=== PATIENT | female | born 1960 | race Caucasian/White ===

== ENCOUNTER → 2016-07-12 | Outpatient (CLI) | payer MEDICARE, MEDICAID ==
[2016-01-25 12:49] VITALS: BP 123/75
[~2016-07-12] MED LIST: ALPR1TAB2 PO; HYDR-971 PO; LOSA50TA6 PO; OXYC15TA PO
--- NOTE | 2016-07-12 16:23 | KCIC ---
MR LUMBAR SPINE Indication: Lumbar stenosis. Clinical back pain. Radiculopathy and lower extremities when walking. COMPARISON: None Technique: Sagittal T2, sagittal STIR, and sagittal T1-weighted images were obtained. Additional axial T1 and T2 weighted imaging was also performed. FINDINGS: There is retrolisthesis of L5 on S1 and grade 1 anterolisthesis of L3 on L4. No compression fracture or deformity. Overall bone marrow signal is within normal limits apart from reactive endplate edema at L5-S1. The conus terminates normally at the level of L1. Visualized intra-abdominal contents are within normal limits. At L5-S1 there is severe spinal stenosis from a posterior disc osteophyte complex. There is also advanced disc height loss with reactive endplate edema. Correlate for sacral radiculopathies most likely S1. At L5 4-L5 there is moderate disc height loss and a broad-based disc protrusion resulting in severe central spinal stenosis. There is also mild facet arthropathy worse on the left. Correlate for L5 or lower radiculopathy symptoms. At L3-L4 there is moderate central stenosis from the presence of a broad-based disc bulge. There is bilateral facet arthropathy with grade 1 degenerative anterolisthesis. At L2-L3 there is no spinal stenosis. IMPRESSION: Multilevel degenerative disc disease and facet arthropathy at the lower lumbar spine greatest at L4-L5 and L5-S1 where there is severe central spinal stenosis at both levels. Moderate central stenosis is noted at L3-L4. Details per level as above. Electronically signed by: Jluis Ha MD (07/12/2016 4:19 PM)
== END | disposition home or self-care (01) ==
LOC: KCIC MRI 14:24
PROVIDERS: ATTEND Family Medicine
DX: M48.06 Spinal stenosis, lumbar region (principal)
CPT/HCPCS: 72148

== ENCOUNTER 2018-05-07 20:13 | Emergency (ER) | payer MEDICARE, MEDICAID ==
[~2018-05-07] VITALS: Ht 157.5 cm; Wt 81.6 kg
[~2018-05-07 20:13] MED LIST changes: +HYDR-3164 PO; -HYDR-971 PO; +LOSA-73 PO; -LOSA50TA6 PO
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
[2018-05-07] MEDS ORDERED: silver sulfADIAZINE 1% CREAM 25GM TUBE. TP ONE (21:00)
[2018-05-07 21:19] VITALS: BP 103/73
[2018-05-07] MEDS ORDERED: BACITRACIN TOPICAL OINT 14GM TUBE. TP ONE (21:30)
[2018-05-07] MEDS ORDERED: HYDROcodone/APAP 5/325MG 1 TAB TABLET PO ONE (22:00)
[2018-05-07] MEDS ORDERED: MUPI22OI2 TP (22:03)
[2018-05-07] MEDS ORDERED: HYDR-2761 PO (22:03)
== END 2018-05-07 22:13 | disposition home or self-care (01) ==
LOC: ER 20:13
DX: T24.211A Burn of second degree of right thigh, initial encounter (principal); E78.00 Pure hypercholesterolemia, unspecified; I10 Essential (primary) hypertension; G89.29 Other chronic pain; Z88.0 Allergy status to penicillin; Z88.2 Allergy status to sulfonamides; Z88.5 Allergy status to narcotic agent; W29.0XXA Contact with powered kitchen appliance, initial encounter; Y93.G3 Activity, cooking and baking; Y92.89 Other specified places as the place of occurrence of the external cause; Y99.8 Other external cause status
CPT/HCPCS: 16020; 99284-25

== ENCOUNTER 2018-05-09 14:29 | Emergency (ER) | payer MEDICARE, MEDICAID ==
[~2018-05-09] VITALS: Ht 157.5 cm; Wt 81.6 kg
[~2018-05-09 14:29] MED LIST changes: +HYDR-2761 PO; +MUPI22OI2 TP
[2018-05-09 14:35] VITALS: BP 196/99
[2018-05-09] MEDS ORDERED: MORPHINE SULFATE 10 MG/ML VIAL. SQ ONE (15:15)
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
[2018-05-09] MEDS ORDERED: DICL50TA2 PO (15:22)
[2018-05-09] MEDS ORDERED: SILV20CR14 TP (15:23)
== END 2018-05-09 15:28 | disposition home or self-care (01) ==
LOC: ER 14:29
DX: T24.211D Burn of second degree of right thigh, subsequent encounter (principal); F41.9 Anxiety disorder, unspecified; E78.00 Pure hypercholesterolemia, unspecified; I10 Essential (primary) hypertension; F17.210 Nicotine dependence, cigarettes, uncomplicated; G89.29 Other chronic pain; Z98.890 Other specified postprocedural states; Z96.659 Presence of unspecified artificial knee joint; Z88.2 Allergy status to sulfonamides; Z88.8 Allergy status to other drugs, medicaments and biological substances; X58.XXXD Exposure to other specified factors, subsequent encounter
CPT/HCPCS: 96372; 99284; J2270

== ENCOUNTER → 2018-05-10 | Outpatient (CLI) | payer MEDICARE, MEDICAID ==
[2018-05-09 14:35] VITALS: BP 196/99
[~2018-05-10] MED LIST changes: +DICL50TA2 PO; +ESCITALOPRAM OX10 MG PO; +HYDR-3135 PO; +SILV20CR14 TP
== END | disposition home or self-care (01) ==
LOC: PMGWOUND 09:44
PROVIDERS: ATTEND Preventive Medicine Undersea and Hyperbaric Medicine
DX: T24.311A Burn of third degree of right thigh, initial encounter (principal); T21.35XA Burn of third degree of buttock, initial encounter; L98.411 Non-pressure chronic ulcer of buttock limited to breakdown of skin; T31.0 Burns involving less than 10% of body surface; G89.29 Other chronic pain; I10 Essential (primary) hypertension; E78.00 Pure hypercholesterolemia, unspecified; F41.9 Anxiety disorder, unspecified; F17.200 Nicotine dependence, unspecified, uncomplicated; E66.9 Obesity, unspecified; Z68.32 Body mass index [BMI] 32.0-32.9, adult; Z88.0 Allergy status to penicillin; Z88.5 Allergy status to narcotic agent; Z88.2 Allergy status to sulfonamides; X19.XXXA Contact with other heat and hot substances, initial encounter; Y93.89 Activity, other specified; Y92.89 Other specified places as the place of occurrence of the external cause; Y99.8 Other external cause status
CPT/HCPCS: 97597; 97598

== ENCOUNTER → 2018-05-15 | Outpatient (CLI) | payer MEDICARE, MEDICAID ==
[2018-05-09 14:35] VITALS: BP 196/99
== END | disposition home or self-care (01) ==
LOC: PMGWOUND 11:35
PROVIDERS: ATTEND Emergency Medicine Undersea and Hyperbaric Medicine
DX: T21.35XD Burn of third degree of buttock, subsequent encounter (principal)
CPT/HCPCS: 97597; 97598

== ENCOUNTER → 2018-05-19 | Outpatient (CLI) | payer MEDICARE, MEDICAID ==
[2018-05-09 14:35] VITALS: BP 196/99
== END | disposition home or self-care (01) ==
LOC: PMGWOUND 11:19
PROVIDERS: ATTEND Preventive Medicine Undersea and Hyperbaric Medicine
DX: T21.35XD Burn of third degree of buttock, subsequent encounter (principal)
CPT/HCPCS: 97597; 97598

== ENCOUNTER 2018-06-25 13:22 | Inpatient (IN) | payer MEDICARE, MEDICAID ==
[2018-06-24] MEDS: IV NORMAL SALINE 1000ML BAG 1,000 ML IV SCH (21:00)
[2018-06-25] VITALS (7 sets, daily range): BP systolic 100–144; BP diastolic 58–85
[~2018-06-25] VITALS: Ht 162.6 cm; Wt 88.1 kg
[~2018-06-25 13:22] MED LIST changes: +CLINDAMYCIN 900MG PREMIX 50 ML IV PRN; -ESCITALOPRAM OX10 MG PO; -HYDR-3135 PO
--- NOTE | 2018-06-25 13:43 | RAD ---
EXAM: Left shoulder, 2 views. HISTORY: Fall. COMPARISON: None. FINDINGS: 2 views left shoulder obtained. There is a comminuted displaced left humeral head and neck fracture. No shoulder dislocation is seen. There is cervical spinal fusion instrumentation and degenerative change involving the visualized cervical spine. IMPRESSION: Displaced comminuted left humeral head and neck fracture. Electronically signed by: Tyra Mclaughlin MD (06/25/2018 1:40 PM) [facility]
--- NOTE | 2018-06-25 14:02 | PHYS DOC ---
Past Medical History Past Medical History: Anxiety, High Cholesterol, Hypertension, Other Additional Past Medical Histor: chronic neck pain Past Surgical History: , Knee Replacement Additional Past Surgical Histo: neck/hernia surgery,bilat carpal tunnel/nerve relaease Alcohol Use: None Drug Use: None Adult General Chief Complaint Chief Complaint: shoulder injury HPI HPI Patient is a 58 year old right-handed female brought in by EMS because of a fall and left shoulder injury. Patient states she lost her balance around midnight last night and had a fall and landed on left shoulder without loss of consciousness or head injury. Patient complaining of pain in left shoulder and unable to move her left upper extremity since the injury and rated her pain 10 over 10 that improved with 100 g of Fentanyl IV given by EMS. Patient denies other injuries and new focal neuro deficit. Review of Systems Review of Systems Constitutional: Denies fever or chills [] Eyes: Denies change in visual acuity, redness, or eye pain [] HENT: Denies nasal congestion or sore throat [] Respiratory: Denies cough or shortness of breath [] Cardiovascular: No additional information not addressed in HPI [] GI: Denies abdominal pain, nausea, vomiting, bloody stools or diarrhea [] : Denies dysuria or hematuria [] Musculoskeletal: Denies back pain, reports joint pain [] Integument: Denies rash or skin lesions [] Neurologic: Denies headache, focal weakness or sensory changes [] Endocrine: Denies polyuria or polydipsia [] All other systems were reviewed and found to be within normal limits, except as documented in this note. Current Medications Current Medications Current Medications Medications (Trade) Dose Ordered Sig/Bib Start Time Stop Time Status Last Admin Dose Admin Clindamycin Phosphate 50 ml @ 100 mls/hr 1X PREOP PRN 06/25/18 06:00 06/26/18 05:59 Fentanyl Citrate (Fentanyl 2ml Vial) 50 mcg 1X ONCE 06/25/18 14:45 06/25/18 14:46 DC 06/25/18 14:47 50 MCG Allergies Allergies Physical Exam Physical Exam Constitutional: Well developed, well nourished, mild distress, non-toxic appearance. [] HENT: Normocephalic, atraumatic. Eyes: PERRLA, EOMI, conjunctiva normal, no discharge. [] Neck: Normal range of motion, no tenderness, supple, no stridor. [] Cardiovascular:Heart rate regular rhythm, no murmur [] Lungs & Thorax: Bilateral breath sounds clear to auscultation [] Skin: Warm, dry, no erythema, no rash. [] Back: No tenderness, no CVA tenderness. [] Extremities: Left shoulder with deformity and edema and ecchymosis with limited range of motion, no neurovascular deficit. Neurologic: Alert and oriented X 3, normal motor function, normal sensory function, no focal deficits noted. [] Psychologic: Affect normal, judgement normal, mood normal. [] Current Patient Data Vital Signs Vital Signs Date Time Temp Pulse Resp B/P (MAP) Pulse Ox O2 Delivery O2 Flow Rate FiO2 06/25/18 14:47 14 Room Air 06/25/18 14:30 86 131/86 (101) 99 2.0 06/25/18 13:22 99.0 99.0 EKG EKG [] Radiology/Procedures Radiology/Procedures [facility] [address] [place] [address] IMAGING REPORT Signed PATIENT: ENA AGEE ACCOUNT: [id number] : 1960 LOCATION: ER AGE: 58 SEX: F EXAM STATUS: PRE ER ORD. PHYSICIAN: MARCO A RODRIGUEZ MD REASON: FALL LAST NIGHT, LEFT SHOULDER PAIN WITH BRUISING PROCEDURE: SHOULDER 2+V LEFT EXAM: Left shoulder, 2 views. HISTORY: Fall. COMPARISON: None. FINDINGS: 2 views left shoulder obtained. There is a comminuted displaced left humeral head and neck fracture. No shoulder dislocation is seen. There is cervical spinal fusion instrumentation and degenerative change involving the visualized cervical spine. IMPRESSION: Displaced comminuted left humeral head and neck fracture. Electronically signed by: Tyra Leos MD (06/25/2018 1:40 PM) [facility] DICTATED and SIGNED BY: TYRA LEOS MD DATE: 06/25/18 5301 Course & Med Decision Making Course & Med Decision Making Pertinent Labs and Imaging studies reviewed. (See chart for details) Evaluation of patient in ER showed 58 female patient with a fall and injury to left shoulder with displaced fracture of humerus head and neck. She was evaluated by Dr. Hopkins in ER with recommendation for admission and possible surgery today.Patient requiring admission for further evaluation and treatment. Discussed with Dr. More who is in agreement with admission. Discussed findings and plan with patient and family, who acknowledge understanding and agreement. Dragon Disclaimer Dragon Disclaimer This electronic medical record was generated, in whole or in part, using a voice recognition dictation system. Departure Departure Impression: Primary Impression: Closed left humeral fracture Disposition: 09 ADMITTED INPATIENT Admitting Physician: Walt More (accepted admission at 1507) Condition: IMPROVED Referrals: MARTELL PIERRE MD (PCP) Problem Qualifiers Primary Impression: Closed left humeral fracture Encounter type: initial encounter Humerus Location: proximal Fracture morphology: other fracture Fracture alignment: displaced Qualified Codes: S42.292A - Other displaced fracture of upper end of left humerus, initial encounter for closed fracture MARCO A RODRIGUEZ MD June 25, 2018 14:02
[2018-06-25] MEDS ORDERED: fentaNYL PF VIAL 100 MCG/2 ML VIAL IV ONE (14:45)
[2018-06-25 15:15] LABS: BASO # 0.1 x10^3/uL (0.0-0.2); BASO % 1 % (0-3); EOS # 0.5 x10^3/uL (0.0-0.7); EOS % 5 % (0-3); HEMATOCRIT 40.7 % (36.0-47.0); HEMOGLOBIN 13.2 g/dL (12.0-15.5); LYMPH # 2.3 x10^3/uL (1.0-4.8); LYMPH % 25 % (24-48); MEAN CORPUSCULAR HEMOGLOBIN 29 pg (25-35); MEAN CORPUSCULAR HGB CONC 33 g/dL (31-37); MEAN CORPUSCULAR VOLUME 88 fL (79-100); MONO # 0.7 x10^3/uL (0.0-1.1); MONO % 8 % (0-9); NEUT # 5.7 x10^3uL (1.8-7.7); NEUT % 62 % (31-73); PLATELET COUNT 403 x10^3/uL (140-400); RED BLOOD COUNT 4.61 x10^6/uL (3.50-5.40); RED CELL DISTRIBUTION WIDTH 14.2 % (11.5-14.5); WHITE BLOOD COUNT 9.3 x10^3/uL (4.0-11.0)
[2018-06-25 15:22] LABS: CALCIUM 9.5 mg/dL (8.5-10.1); GFR 56.7; POTASSIUM 4.6 mmol/L (3.5-5.1)
[2018-06-25 15:27] LABS: ALBUMIN 3.8 g/dL (3.4-5.0); TOTAL BILIRUBIN 0.3 mg/dL (0.2-1.0); TOTAL PROTEIN 7.8 g/dL (6.4-8.2)
[2018-06-25] MEDS: IV NORMAL SALINE 1000ML BAG 1,000 ML IV SCH (15:39)
[2018-06-25] MEDS ORDERED: IV RINGERS,LACTATED 1000ML 1,000 ML IV SCH (16:02)
[2018-06-25] MEDS ORDERED: fentaNYL PF VIAL 100 MCG/2 ML VIAL IV PRN ×4 (16:15→17:00)
[2018-06-25] MEDS ORDERED: MIDAZOLAM HCL/PF 2 MG/2 ML VIAL. IV PRN (16:15)
[2018-06-25] MEDS ORDERED: LIDOCAINE 1% PF 2 ML VIAL. ID PRN ×2 (16:15)
[2018-06-25] MEDS ORDERED: PROCHLORPERAZINE 10 MG/2 ML VIAL. IV PRN (16:15)
[2018-06-25] MEDS ORDERED: ONDANSETRON PF 4 MG/2 ML VIAL. IV PRN ×2 (16:15→17:00)
[2018-06-25] MEDS ORDERED: HYDROmorphone 2 MG/ML VIAL IV PRN (16:15)
[2018-06-25] MEDS ORDERED: MORPHINE SULFATE 2 MG/ML VIAL. IV PRN ×2 (16:15→17:00)
[2018-06-25] MEDS: IV RINGERS,LACTATED 1000ML 1,000 ML IV SCH (16:15)
[2018-06-25] MEDS ORDERED: NEOSTIGMINE METHYLSULFATE 5 MG/5 ML SYRINGE. ONE (16:45)
[2018-06-25] MEDS ORDERED: fentaNYL PF VIAL 100 MCG/2 ML VIAL ONE ×2 (16:45→19:57)
[2018-06-25] MEDS ORDERED: SEVOFLURANE 61 TO 120 MINUTES. IH ONE (16:45)
[2018-06-25] MEDS ORDERED: GLYCOPYRROLATE 1 MG/5 ML VIAL. ONE (16:45)
[2018-06-25] MEDS ORDERED: ROCURONIUM 50 MG/5 ML VIAL. ONE (16:45)
[2018-06-25] MEDS ORDERED: MIDAZOLAM HCL/PF 2 MG/2 ML VIAL. ONE (16:45)
[2018-06-25] MEDS ORDERED: LIDOCAINE 2% PF 5 ML VIAL. ONE (16:46)
[2018-06-25] MEDS ORDERED: DEXAMETHASONE SOD PHOS 4 MG/ML VIAL ONE (16:46)
[2018-06-25] MEDS ORDERED: PROPOFOL 20 ML IV ONE (16:46)
[2018-06-25] MEDS ORDERED: ONDANSETRON PF 4 MG/2 ML VIAL. ONE (16:46)
[2018-06-25] MEDS ORDERED: KETOROLAC 30 MG/ML INJ FOR OR. INJ ONE (16:46)
[2018-06-25] MEDS ORDERED: CLINDAMYCIN 900MG PREMIX 50 ML IV SCH (17:00)
[2018-06-25] MEDS ORDERED: oxyCODONE IR 5 MG TABLET PO PRN (17:00)
[2018-06-25] MEDS ORDERED: HYDROcodone/APAP 7.5/325MG 1 TAB TABLET PO PRN (17:00)
[2018-06-25] MEDS ORDERED: DEXTROSE 50% 25 GM / 50ML DISP.SYRIN. IV PRN (17:00)
[2018-06-25] MEDS ORDERED: POLYETHYLENE GLYCOL 3350 17 GM PACKET. PO PRN (17:00)
--- NOTE | 2018-06-25 19:56 | PDOC4 ---
Operative Note Operative Note Date of surgery 06/25/2018 Preoperative diagnosis: Displaced proximal humerus fracture left Postoperative diagnosis: Same Operative procedure: Operative reduction internal fixation with locking plate and screws of left proximal humerus Surgeon: Kellie Anesthesia: Gen. Estimated blood loss: 150 mL Complications: None Operative indications: Please see my detailed emergency department evaluation for operative indications and note that she has a displaced proximal humerus fracture and difficulty with some balance and getting around due to some pre- existing neurologic issues with spinal stenosis and poor results from a previous spinal surgeries with some numbness in the left small finger and difficulty standing for an extended period of time on her feet with weakness balance difficulties among other issues. We talked about the risks of surgical intervention including the possibility of infection nonhealing nerve or blood vessel damage among others and the expected outcome of nonsurgical treatment. All her questions were answered she wishes to proceed with operative evaluation and treatment. Operative text: Patient was identified procedure verified patient placed in the supine position on the operative table. After adequate amounts of general anesthesia were administered she was placed on the Tmax head rest all bony prominences were well-padded and she was placed in the beachchair position. The left upper extremity was prepped and draped in standard sterile fashion and after timeout was performed patient procedure identified and verified a standard deltopectoral approach was carried out deltoid and cephalic vein were taken laterally biceps groove was located fracture was reduced under fluoroscopic g uidance and a 4 hole Micheal Alps proximal humerus plate was placed in proper orientation along the shaft using the sliding screw for reference. A guidewire was placed up to the central portion of the humeral head again under fluoroscopic guidance and locking screws were placed proximally starting at the 6 o'clock position and proceeding in a clockwise fashion. Excellent fixation was obtained throughout and screw placement was checked for maintain reduction and hardware length and placement the remainder of the shaft fixation was carried out with nonlocking shaft screws and again hardware placement reduction checked under multiple fluoroscopic views thorough irrigation carried out normal saline solution closure accomplished with buried Vicryl suture skin closure with nehal sterile dressings were placed patient was returned recovery room in stable condition having tolerated procedure well JAEL MARIANO MD June 25, 2018 19:56
[2018-06-25] MEDS: fentaNYL PF VIAL 100 MCG/2 ML VIAL IV PRN ×2 (20:03→20:25)
[2018-06-25] MEDS: CLINDAMYCIN 900MG PREMIX 50 ML IV SCH (23:43)
[2018-06-26] MEDS: IV RINGERS,LACTATED 1000ML 1,000 ML IV SCH (00:15)
[2018-06-26 00:30] VITALS: BP 129/66
[2018-06-26 03:30] VITALS: BP 104/64
[2018-06-26] MEDS: IV NORMAL SALINE 1000ML BAG 1,000 ML IV SCH (04:59)
[2018-06-26] MEDS: CLINDAMYCIN 900MG PREMIX 50 ML IV SCH ×2 (05:08→11:48)
[2018-06-26] MEDS: MORPHINE SULFATE 4 MG/ML VIAL. IV PRN ×3 (05:09→13:00)
[2018-06-26] MEDS ORDERED: MAGNESIUM HYDROXIDE 2,400 MG/30 ML ORAL.SUSP. PO PRN (06:00)
[2018-06-26 07:00] VITALS: BP 157/81
[2018-06-26] MEDS ORDERED: ESCITALOPRAM OX10 MG PO (08:44)
--- NOTE | 2018-06-26 08:51 | PDOC ---
PROGRESS NOTES Subjective Subjective Patient feels pain presently controlled. Willing to return home today but feels she could use home health there. Objective Objective Vital Signs Date Time Temp Pulse Resp B/P (MAP) Pulse Ox O2 Delivery O2 Flow Rate FiO2 06/26/18 08:27 Room Air 06/26/18 07:00 98.4 87 20 157/81 (106) 97 98.4 06/25/18 20:04 8.0 Intake and Output0 06/26/18 07:00 Intake Total 3270 ml Output Total 150 ml Balance 3120 ml Intake Oral 1520 ml IV Total 1750 ml Output Estimated Blood Loss 150 ml # Voids 5 Physical Exam Abdomen: Normal bowel sounds, Soft, No tenderness Heart: Regular rate Extremities: Other (dressing and sling in place L UE, ecchymosis surrounding) General: Alert, Oriented X3, No acute distress Lungs: Other (BS mildly decreased throughout but CTA) Assessment Assessment Problems Medical Problems: (1) Closed left humeral fracture Status: Acute Plan Plan of Care 1. Fx L proximal humerus, POD #1 ORIF - stable. Should be able to return home today with po pain meds per Orthopedics. Will order home health for therapies, etc. 2. HTN - continue Losartan. 3. chronic anxiety - stable, continue her usual medication.s 4. chronic back pain - patient has been on Oxycodone for this from a pain center (not our office). States she has [facility] care [facility] so is almost out of her pain medication. has referred her for PT for her back (has not started this yet) but has not provided her with narcotic pain medication. Advised to resume Naprosyn and follow up with as advised. Comment Review of Relevant I have reviewed the following items sharmin (where applicable) has been applied. Labs Laboratory Tests Test 06/25/18 14:58 White Blood Count 9.3 x10^3/uL (4.0-11.0) Red Blood Count 4.61 x10^6/uL (3.50-5.40) Hemoglobin 13.2 g/dL (12.0-15.5) Hematocrit 40.7 % (36.0-47.0) Mean Corpuscular Volume 88 fL (79-100) Mean Corpuscular Hemoglobin 29 pg (25-35) Mean Corpuscular Hemoglobin Concent 33 g/dL (31-37) Red Cell Distribution Width 14.2 % (11.5-14.5) Platelet Count 403 x10^3/uL (140-400) Neutrophils (%) (Auto) 62 % (31-73) Lymphocytes (%) (Auto) 25 % (24-48) Monocytes (%) (Auto) 8 % (0-9) Eosinophils (%) (Auto) 5 % (0-3) Basophils (%) (Auto) 1 % (0-3) Neutrophils # (Auto) 5.7 x10^3uL (1.8-7.7) Lymphocytes # (Auto) 2.3 x10^3/uL (1.0-4.8) Monocytes # (Auto) 0.7 x10^3/uL (0.0-1.1) Eosinophils # (Auto) 0.5 x10^3/uL (0.0-0.7) Basophils # (Auto) 0.1 x10^3/uL (0.0-0.2) Prothrombin Time 13.0 SEC (11.7-14.0) Prothromb Time International Ratio 1.0 (0.8-1.1) Sodium Level 136 mmol/L (136-145) Potassium Level 4.6 mmol/L (3.5-5.1) Chloride Level 99 mmol/L (98-107) Carbon Dioxide Level 30 mmol/L (21-32) Anion Gap 7 (6-14) Blood Urea Nitrogen 18 mg/dL (7-20) Creatinine 1.0 mg/dL (0.6-1.0) Estimated GFR (Cockcroft-Gault) 56.7 BUN/Creatinine Ratio 18 (6-20) Glucose Level 95 mg/dL (70-99) Calcium Level 9.5 mg/dL (8.5-10.1) Total Bilirubin 0.3 mg/dL (0.2-1.0) Aspartate Amino Transf (AST/SGOT) 16 U/L (15-37) Alanine Aminotransferase (ALT/SGPT) 17 U/L (14-59) Alkaline Phosphatase 99 U/L (46-116) Total Protein 7.8 g/dL (6.4-8.2) Albumin 3.8 g/dL (3.4-5.0) Albumin/Globulin Ratio 1.0 (1.0-1.7) Laboratory Tests Test 06/25/18 14:58 White Blood Count 9.3 x10^3/uL (4.0-11.0) Red Blood Count 4.61 x10^6/uL (3.50-5.40) Hemoglobin 13.2 g/dL (12.0-15.5) Hematocrit 40.7 % (36.0-47.0) Mean Corpuscular Volume 88 fL (79-100) Mean Corpuscular Hemoglobin 29 pg (25-35) Mean Corpuscular Hemoglobin Concent 33 g/dL (31-37) Red Cell Distribution Width 14.2 % (11.5-14.5) Platelet Count 403 x10^3/uL (140-400) Neutrophils (%) (Auto) 62 % (31-73) Lymphocytes (%) (Auto) 25 % (24-48) Monocytes (%) (Auto) 8 % (0-9) Eosinophils (%) (Auto) 5 % (0-3) Basophils (%) (Auto) 1 % (0-3) Neutrophils # (Auto) 5.7 x10^3uL (1.8-7.7) Lymphocytes # (Auto) 2.3 x10^3/uL (1.0-4.8) Monocytes # (Auto) 0.7 x10^3/uL (0.0-1.1) Eosinophils # (Auto) 0.5 x10^3/uL (0.0-0.7) Basophils # (Auto) 0.1 x10^3/uL (0.0-0.2) Prothrombin Time 13.0 SEC (11.7-14.0) Prothromb Time International Ratio 1.0 (0.8-1.1) Sodium Level 136 mmol/L (136-145) Potassium Level 4.6 mmol/L (3.5-5.1) Chloride Level 99 mmol/L (98-107) Carbon Dioxide Level 30 mmol/L (21-32) Anion Gap 7 (6-14) Blood Urea Nitrogen 18 mg/dL (7-20) Creatinine 1.0 mg/dL (0.6-1.0) Estimated GFR (Cockcroft-Gault) 56.7 BUN/Creatinine Ratio 18 (6-20) Glucose Level 95 mg/dL (70-99) Calcium Level 9.5 mg/dL (8.5-10.1) Total Bilirubin 0.3 mg/dL (0.2-1.0) Aspartate Amino Transf (AST/SGOT) 16 U/L (15-37) Alanine Aminotransferase (ALT/SGPT) 17 U/L (14-59) Alkaline Phosphatase 99 U/L (46-116) Total Protein 7.8 g/dL (6.4-8.2) Albumin 3.8 g/dL (3.4-5.0) Albumin/Globulin Ratio 1.0 (1.0-1.7) Medications Current Medications Fentanyl Citrate (Fentanyl 2ml Vial) 50 mcg 1X ONCE IV Last administered on 06/25/18at 14:47; Start 06/25/18 at 14:45; Stop 06/25/18 at 14:46; Status DC Sodium Chloride 1,000 ml @ 150 mls/hr Q6H40M IV Last administered on 06/24/18at 21:00; Start 06/25/18 at 15:39; Stop 06/26/18 at 15:38 Ondansetron HCl (Zofran) 4 mg PRN Q6HRS PRN IV NAUSEA/VOMITING; Start 06/25/18 at 16:15; Stop 06/25/18 at 22:00; Status DC Fentanyl Citrate (Fentanyl 2ml Vial) 25 mcg PRN Q5MIN PRN IV MILD PAIN; Start 06/25/18 at 16:15; Stop 06/25/18 at 22:00; Status DC Fentanyl Citrate (Fentanyl 2ml Vial) 50 mcg PRN Q5MIN PRN IV MODERATE TO SEVERE PAIN Last administered on 06/25/18at 20:25; Start 06/25/18 at 16:15; Stop 06/25/18 at 22:00; Status DC Morphine Sulfate (Morphine Sulfate) 1 mg PRN Q10MIN PRN IV SEVERE PAIN; Start 06/25/18 at 16:15; Stop 06/25/18 at 22:00; Status DC Ringer's Solution 1,000 ml @ 30 mls/hr Q24H IV Last administered on 06/25/18at 16:20; Start 06/25/18 at 16:02; Stop 06/26/18 at 04:01; Status DC Lidocaine HCl (Xylocaine-Mpf 1% 2ml Vial) 2 ml 1X PRN PRN ID IV START; Start 06/25/18 at 16:15; Stop 06/25/18 at 22:00; Status DC Hydromorphone HCl (Dilaudid) 0.5 mg PRN Q10MIN PRN IV SEV PAIN, Second choice; Start 06/25/18 at 16:15; Stop 06/25/18 at 22:00; Status DC Prochlorperazine Edisylate (Compazine) 5 mg PACU PRN PRN IV NAUSEA, MRX1; Start 06/25/18 at 16:15; Stop 06/25/18 at 22:00; Status DC Midazolam HCl (Versed) 2 mg PRN 1X PRN IV PRIOR TO PROCEDURE; Start 06/25/18 at 16:15; Stop 06/26/18 at 16:14 Fentanyl Citrate (Fentanyl 2ml Vial) 25 mcg PRN Q5MIN PRN IV X 2 DOSES FOR GABRIELLE N; Start 06/25/18 at 16:15; Stop 06/26/18 at 16:14 Fentanyl Citrate (Fentanyl 2ml Vial) 50 mcg PRN Q5MIN PRN IV X 2 DOSES FOR GABRIELLE N; Start 06/25/18 at 16:15; Stop 06/26/18 at 16:14 Ringer's Solution 1,000 ml @ 125 mls/hr Q8H IV ; Start 06/25/18 at 16:15; Stop 06/26/18 at 04:14; Status DC Lidocaine HCl (Xylocaine-Mpf 1% 2ml Vial) 2 ml 1X PRN PRN ID IV START; Start 06/25/18 at 16:15; Stop 06/26/18 at 16:14 Clindamycin Phosphate 50 ml @ 100 mls/hr 1X PREOP PRN IV PRIOR TO PROCEDURE; Start 06/25/18 at 06:00; Stop 06/26/18 at 06:00; Status DC Glycopyrrolate (Robinul) 1 mg STK-MED ONCE .ROUTE ; Start 06/25/18 at 16:45; Stop 06/25/18 at 16:46; Status DC Sevoflurane (Ultane) 60 ml STK-MED ONCE IH ; Start 06/25/18 at 16:45; Stop 06/25/18 at 16:46; Status DC Rocuronium Arcade (Zemuron) 50 mg STK-MED ONCE .ROUTE ; Start 06/25/18 at 16:45; Stop 06/25/18 at 16:46; Status DC Fentanyl Citrate (Fentanyl 2ml Vial) 100 mcg STK-MED ONCE .ROUTE ; Start 06/25/18 at 16:45; Stop 06/25/18 at 16:46; Status DC Neostigmine Methylsulfate (Neostigmine Methylsulfate) 5 mg STK-MED ONCE .ROUTE ; Start 06/25/18 at 16:45; Stop 06/25/18 at 16:46; Status DC Midazolam HCl (Versed) 2 mg STK-MED ONCE .ROUTE ; Start 06/25/18 at 16:45; Stop 06/25/18 at 16:46; Status DC Propofol 20 ml @ As Directed STK-MED ONCE IV ; Start 06/25/18 at 16:46; Stop 06/25/18 at 16:47; Status DC Dexamethasone Sodium Phosphate (Decadron) 4 mg STK-MED ONCE .ROUTE ; Start 06/25/18 at 16:46; Stop 06/25/18 at 16:47; Status DC Ondansetron HCl (Zofran) 4 mg STK-MED ONCE .ROUTE ; Start 06/25/18 at 16:46; Stop 06/25/18 at 16:47; Status DC Lidocaine HCl (Lidocaine Pf 2% Vial) 5 ml STK-MED ONCE .ROUTE ; Start 06/25/18 at 16:46; Stop 06/25/18 at 16:47; Status DC Ketorolac Tromethamine (Toradol For Or Only) 30 mg STK-MED ONCE INJ ; Start 06/25/18 at 16:46; Stop 06/25/18 at 16:47; Status DC Oxycodone HCl (Roxicodone) 5 mg PRN Q3HRS PRN PO PAIN SEE COMMENT Last administered on 06/25/18at 23:43; Start 06/25/18 at 17:00 Morphine Sulfate (Morphine Sulfate) 2 mg PRN Q1HR PRN IV PAIN SEE COMMENT; Start 06/25/18 at 17:00 Fentanyl Citrate (Fentanyl 2ml Vial) 25 mcg PRN Q1HR PRN IV PAIN SEE COMMENT; Start 06/25/18 at 17:00 Senna/Docusate Sodium (Senna Plus) 1 tab DAILY PO ; Start 06/26/18 at 09:00 Polyethylene Glycol (miraLAX PACKET) 17 gm PRN DAILY PRN PO CONSTIPATION 1ST CHOICE; Start 06/25/18 at 17:00 Clindamycin Phosphate 50 ml @ 100 mls/hr Q6H IV Last administered on 06/25/18at 17:20; Start 06/25/18 at 17:00; Stop 06/25/18 at 20:21; Status DC Ondansetron HCl (Zofran) 4 mg PRN Q4HRS PRN IV NAUSEA/VOMITING 1ST CHOICE; Start 06/25/18 at 17:00 Magnesium Hydroxide (Milk Of Magnesia) 2,400 mg 1X PRN PRN PO CONSTIPATION SEE COMMENT; Start 06/26/18 at 06:00; Stop 06/27/18 at 05:59 Bisacodyl (Dulcolax Supp) 10 mg 1X PRN PRN ME CONSTIPATION SEE COMMENT; Start 06/26/18 at 16:00; Stop 06/27/18 at 15:59 Acetaminophen/ Hydrocodone Bitart (Lortab 7.5/325) 1 tab PRN Q4HRS PRN PO PAIN SEE COMMENT Last administered on 06/26/18at 02:41; Start 06/25/18 at 17:00 Morphine Sulfate (Morphine Sulfate) 4 mg PRN Q2HR PRN IV PAIN SEE COMMENT Last administered on 06/26/18at 08:27; Start 06/25/18 at 17:00 Acetaminophen/ Hydrocodone Bitart (Lortab 7.5/325) 2 tab PRN Q4HRS PRN PO PAIN SEE COMMENT; Start 06/25/18 at 17:00 Dextrose (Dextrose 50%-Water Syringe) 12.5 gm PRN Q15MIN PRN IV SEE COMMENTS; Start 06/25/18 at 17:00 Fentanyl Citrate (Fentanyl 2ml Vial) 100 mcg STK-MED ONCE .ROUTE ; Start 06/25/18 at 19:57; Stop 06/25/18 at 19:58; Status DC Clindamycin Phosphate 50 ml @ 100 mls/hr Q6H IV Last administered on 06/26/18at 05:08; Start 06/25/18 at 23:30; Stop 06/26/18 at 11:59 Alprazolam (Xanax) 1 mg BID PRN PO ANXIETY; Start 06/26/18 at 08:45; Status UNV Losartan Potassium (Cozaar) 50 mg DAILY PO ; Start 06/26/18 at 09:00; Status UNV Non-Formulary Medication (Escitalopram Oxalate ) 1 tab DAILY PO ; Start 06/26/18 at 09:00; Status UNV Active Scripts Active Escitalopram Oxalate 10 Mg Tablet 1 Tab PO DAILY Mupirocin Ointment (Mupirocin) 22 Gm Oint...g. 1 Daryl TP TID 7 Days Reported Oxycodone Hcl Immed.release (Oxycodone Hcl) 15 Mg Tablet 1 Tab PO TID PRN Xanax (Alprazolam) 1 Mg Tablet 1 Tab PO BID PRN Losartan Potassium 50 Mg Tablet 50 Mg PO DAILY Vitals/I & O Vital Sign - Last 24 Hours 06/25/18 06/25/18 06/25/18 06/25/18 13:22 14:00 14:30 14:47 Temp 99.0 99.0 Pulse 74 90 86 Resp 16 18 20 14 B/P (MAP) 110/83 (92) 119/77 (91) 131/86 (101) Pulse Ox 99 97 99 O2 Delivery Room Air Room Air Room Air Room Air O2 Flow Rate 2.0 2.0 06/25/18 06/25/18 06/25/18 06/25/18 15:00 15:30 16:13 19:47 Temp 97.7 97.7 Pulse 82 82 76 Resp 16 18 16 B/P (MAP) 161/95 (117) 146/ Pulse Ox 99 100 100 O2 Delivery Room Air Room Air Room Air Room Air O2 Flow Rate 2.0 2.0 2.0 06/25/18 06/25/18 06/25/18 06/25/18 19:49 20:03 20:04 20:19 Temp 97.9 97.9 97.9 97.9 97.9 97.9 Pulse 90 80 90 Resp 16 20 20 20 B/P (MAP) 132/72 170/75 159/86 Pulse Ox 100 100 100 95 O2 Delivery Room Air Simple Mask Simple Mask Room Air O2 Flow Rate 8 8.0 8.0 06/25/18 06/25/18 06/25/18 06/25/18 20:25 20:45 21:00 21:15 Temp 98.0 98.0 Pulse 80 80 81 Resp 20 B/P (MAP) 144/74 (97) 133/83 (100) 142/85 (104) Pulse Ox 97 95 94 95 O2 Delivery Room Air Room Air Room Air Room Air 06/25/18 06/25/18 06/25/18 06/25/18 21:30 22:00 22:30 23:30 Temp 99.0 99.2 99.1 99.0 99.2 99.1 Pulse 91 81 81 83 Resp 17 B/P (MAP) 144/85 (104) 119/58 (78) 100/66 (77) 106/64 (78) Pulse Ox 95 96 96 95 O2 Delivery Room Air Room Air Room Air Room Air 06/26/18 06/26/18 06/26/18 06/26/18 00:30 03:30 07:00 08:27 Temp 99.3 99.0 98.4 99.3 99.0 98.4 Pulse 97 96 87 Resp 17 20 20 B/P (MAP) 129/66 (87) 104/64 (77) 157/81 (106) Pulse Ox 95 94 97 O2 Delivery Room Air Room Air Room Air Room Air Intake and Output 06/25/18 06/25/18 06/26/18 15:00 23:00 07:00 Intake Total 1750 ml 1520 ml Output Total 150 ml Balance 1600 ml 1520 ml MARTELL PIERRE MD June 26, 2018 08:51
[2018-06-26] MEDS ORDERED: LOSARTAN POTASSIUM 50 MG TABLET. PO SCH (09:00)
[2018-06-26] MEDS ORDERED: CITALOPRAM 20 MG TABLET. PO SCH (09:00)
[2018-06-26] MEDS ORDERED: SENNOSIDES/DOCUSATE 8.6/50MG TABLET. PO SCH (09:00)
--- NOTE | 2018-06-26 09:04 | SNU/HH DC ---
DISCHARGE WITH HOME HEALTH DISCHARGE INFORMATION: Final Diagnosis: Problems Medical Problems: (1) Closed left humeral fracture Status: Acute Condition on Discharge: Stable CODE STATUS: Code Status: Full HOME HEALTH: Face to Face: I certify this patient is under my care and that I, or a nurse practitioner or physician's ex assistant/program director working with me, had a face to face encounter that meets the physician face to face encounter requirements with this patient on []. Correction For: Assess Cardiopulm Status, Pain Management RN For Eval/Treatment: Yes Physical Therapy For: Evalulation/Treatment Occupational Therapy For: Evaluation/Treatment Pt Meets Homebound Status: Unsteady balance w/ amb,, Limited distance walking FOLLOW-UP: Follow up with: Dr Chavira within one month. Follow up with Dr Hopkins as advised. CERTIFICATION STATEMENT: Certification Statement: Certification Statement: Based on the above finding, I certify that this patient is confined to the home and needs intermittent long-term care, physical therapy and/or speech therapy, or continues to need occupational therapy.~ This patient is under my care, and I have initiated the establishment of the plan of care.~ This patient will be followed by myself or a community physician who will periodically review the plan of care. Home Meds Active Scripts Escitalopram Oxalate (ESCITALOPRAM OXALATE) 10 Mg Tablet, 1 TAB PO DAILY for mood, #30 TAB 3 Refills Prov:MARTELL CHAVIRA MD 06/26/18 Mupirocin (MUPIROCIN OINTMENT) 22 Gm Oint...g., 1 MATIAS TP TID for WOUND CARE for 7 Days, #1 TUBE 0 Refills Prov:IRMA BLANCO STREAMING MEDIA SPECIALIST 05/07/18 Reported Medications Oxycodone Hcl (OXYCODONE HCL IMMED.RELEASE) 15 Mg Tablet, 1 TAB PO TID PRN for PAIN, #90 TAB 01/23/16 Alprazolam (XANAX) 1 Mg Tablet, 1 TAB PO BID PRN for ANXIETY, #60 TAB 01/23/16 Losartan Potassium (LOSARTAN POTASSIUM) 50 Mg Tablet, 50 MG PO DAILY, TAB 01/23/16 Discontinued Scripts Silver Sulfadiazine (SILVADENE) 20 Gm Cream..g., 1 MATIAS TP BID, #50 GM Prov:TENISHA GONZALES APRN 05/09/18 Diclofenac Potassium (DICLOFENAC POTASSIUM) 50 Mg Tablet, 1 TAB PO BID, #60 TAB 1 Refill Prov:TENISHA GONZALES STREAMING MEDIA SPECIALIST 05/09/18 Hydrocodone Bit/Acetaminophen (HYDROCODONE-APAP 5-325 ) 1 Tab Tablet, 1 TAB PO PRN Q6HRS PRN for PAIN for 3 Days, #12 TAB 0 Refills Prov:IRMA BLANCO STREAMING MEDIA SPECIALIST 05/07/18 Hydrocodone/Apap 5-325 (NORCO 5-325 TABLET) 1 Each Tablet, 1 TAB PO PRN Q6HRS PRN for PAIN, #6 TAB Prov:TISHA BUITRAGO MD 01/25/16 MARTELL CHAVIRA MD June 26, 2018 09:04
--- NOTE | 2018-06-26 09:33 | SSS ---
ADMIT DATE: 06/26/2018 CHIEF COMPLAINT: Shoulder injury. HISTORY OF PRESENT ILLNESS: The patient is a 58-year-old female who was brought to the Emergency Room with the above complaint. She reported a fall in her home at around midnight on the night prior to admission. She apparently tripped over an area of loose carpet and fell striking her left side. There was no loss of consciousness. She had immediate pain in her shoulder. She apparently had some difficulty getting to the phone to summon help, but was eventually able to call EMS and was brought to the ER. Evaluation there showed her to have a displaced comminuted fracture of the left humeral head and neck. Dr. Hopkins was consulted, and the patient was admitted for further care. PAST MEDICAL HISTORY: Hypertension, chronic anxiety, chronic back pain. PAST SURGICAL HISTORY: , abdominal hernia repair, bilateral total knee arthroplasty, carpal tunnel release. Cervical laminectomy. ALLERGIES: THE PATIENT IS ALLERGIC TO PENICILLIN, SULFA AND PREDNISONE. HOME MEDICATIONS: Xanax 1 mg b.i.d. p.r.n., escitalopram 10 mg daily, losartan 50 mg daily, oxycodone IR 15 mg 1 tablet t.i.d. p.r.n. back pain. FAMILY HISTORY: Noncontributory. SOCIAL HISTORY: The patient is single. She is disabled. She has a long smoking history, but states that she quit smoking cigarettes recently and is very pleased about this. She does not drink alcohol to excess. REVIEW OF SYSTEMS: The patient denies recent illness, fever or chills. She denies cough or shortness of breath. She denies chest pain or palpitation. She denies abdominal pain, nausea or vomiting. She [facility] seeing [facility] for [facility] of her chronic neck and low back pain. She was referred for physical therapy for her back pain, but has not started this yet. She was seeing a different pain center previously, and the oxycodone is from them, but the patient states she is almost out, and she does not intend to follow up there The patient burned her right thigh recently on a hot oven at home. She has been [facility] and reports that the wound has been healing well. Her mood has been fairly good with her usual medications, and her depression has improved after resuming the escitalopram. PHYSICAL EXAMINATION: GENERAL: The patient is alert and oriented x 3, sitting up in bed in no acute distress. HEENT: PERRL, EOMI, sclerae clear. Oropharynx: Mucous membranes moist. NECK: Supple, without lymphadenopathy. CHEST: Breath sounds mildly decreased throughout, but otherwise clear to auscultation. CARDIOVASCULAR: Regular rhythm without murmur. ABDOMEN: Soft, nontender, normoactive bowel sounds are present. EXTREMITIES: Bilateral lower extremities are without edema. There is a healing burn on the large area of the right thigh. The left upper extremity has a surgical dressing and a sling in place with diffuse surrounding ecchymosis. HOSPITAL COURSE: Dr. Hopkins took the patient to the operating room yesterday where he performed an open reduction and internal fixation of her left humeral fracture. She has been stable overnight postoperatively. Her pain is presently controlled with combination of IV and oral pain medication. She is tolerating a regular diet. It is anticipated that she can go home later today if Dr. Hopkins is in agreement with this. Pain medication will be from Dr. Hopkins. We will order home health for physical therapy, etc., as the patient feels she could benefit from this at home. The patient's hypertension has been controlled with losartan, and she is advised to continue this. Her chronic anxiety and depression are fairly well controlled, and she is to continue her usual medications. For her chronic back pain, she is advised to resume the naproxen she had previously been prescribed and to follow up with [facility] as advised. Her present injury will delay the start of her outpatient physical therapy for her back pain, and she understands this. FINAL DIAGNOSES: 1. Fracture of the left proximal humerus. 2. Hypertension. 3. Chronic anxiety and depression. 4. Chronic back pain. DISCHARGE MEDICATIONS: Remain the same as at admission with the addition of [place] 10/325 prn. FOLLOWUP: Followup is with Dr. Chavira within 1 month. Follow up with Dr. Hopkins as advised. MARTELL CHAVIRA MD DR: MAIA/eliezer JOB#: [id number] / [id number] BER
[2018-06-26] MEDS: HYDROcodone/APAP 7.5/325MG 1 TAB TABLET PO PRN ×2 (10:23→17:50)
[2018-06-26] MEDS: ALPRAZolam 1 MG TABLET PO PRN ×2 (10:25→17:49)
[2018-06-26 11:00] VITALS: BP 116/62
--- NOTE | 2018-06-26 12:47 | CONS ---
DATE OF CONSULTATION: 06/25/2018 ORTHOPEDIC EMERGENCY DEPARTMENT CONSULTATION REQUESTING PHYSICIAN: Dr. Hdz. REASON FOR CONSULTATION: Left humerus fracture. HISTORY OF PRESENT ILLNESS: The patient is a 58-year-old right-hand dominant female who lost her balance, tripped on some uneven carpet apparently and fell, landed on her left shoulder, had immediate onset of pain. Denies any head injury, neck or back pain or loss of consciousness. She had left shoulder pain and really cannot move her shoulder very well since the injury. Originally on presentation, she had 10 on a scale of 10 pain, better with IV pain medication. PAST MEDICAL HISTORY: Significant for chronic neck pain, anxiety, hypercholesterolemia, hypertension. PAST SURGICAL HISTORY: Significant for neck surgery and some upper extremity nerve release surgeries and hernia surgery as well as and knee replacement. ALLERGIES: INCLUDE PENICILLIN, WHICH GAVE HER FACIAL SWELLING; SULFA, ITCHING AND HIVES AND PREDNISONE, WHICH IS AN UNKNOWN ALLERGY. MEDICATIONS: List is reviewed. FAMILY HISTORY: Noncontributory. SOCIAL HISTORY: She denies any smoking, alcohol or drug use. REVIEW OF SYSTEMS: She does have some chronic neurologic deficit from her spine surgery. She has chronic numbness in the left fifth finger and also has some overall balance problems and instability from what sounds like spinal stenosis that was not completely resolved with her surgeries despite neck fusion. She said that she has to walk stooped over a shopping cart or use a scooter to help getting around or she has pain and weakness developing in her legs or difficulty again with a feeling her legs or balance the more she walks especially straight up, she has to sit down to regain some of her strength. She denies any focal neurologic deficit from the injury than these other issues are baseline. Again, denies any chest pain, shortness of breath, head injury, headache, visual changes, radiating pain, numbness, tingling, other than baseline in the left fifth finger and the balance issues and stenosis issues described above. PHYSICAL EXAMINATION: GENERAL: A pleasant, cooperative 58-year-old female, alert and oriented, no acute distress. VITAL SIGNS: Temperature 99, pulse 74, respirations 16, blood pressure 110/83, 99% saturation on room air. HEENT: Atraumatic, normocephalic. HEART: Regular rate and rhythm. LUNGS: Clear to auscultation bilaterally. ABDOMEN: Benign. EXTREMITIES: On examination of the lower extremities, she has normal alignment and stability of bilateral hips, knees and ankles. No tenderness on palpation. Minimal symptoms with a straight leg raise sign on either side. Examination of the left upper extremity reveals severe tenderness with any palpation over the left shoulder. There is some bruising and swelling present. She has normal alignment and stability of bilateral elbows and wrists. Normal examination of the right shoulder. Decreased sensation and some paresthesia over the small finger on the left hand. Well-healed incision from previous neck fusion surgery. IMAGING: X-ray findings show a displaced left proximal humerus fracture that had some comminution laterally, but had appears otherwise relatively intact aside from its angulation in both planes. IMPRESSION: Fall with displaced left humerus fracture. TREATMENT PLAN: I went over with her the operative and nonoperative treatment options for her left proximal humerus fracture. Due to her neurologic issues from what she says are poor results from her spine surgery, she has some continued apparent stenosis symptoms as well as weakness, paresthesias and balance problems. She is concerned with being without the use of her shoulder or immobilized significantly, I told her that there would be some limitation regardless of how this is treated, but she did have a bit more use of the left upper extremity with fixation; however, the hardware as they are just to stabilize the area until it can heal, she can do some gentle physical therapy and fine motor use and use it for some support in the interim, however. We talked about the possibility of infection, nerve or blood vessel damage, nonhealing, medical or other anesthetic complications, stiffness, pain even under the best of circumstances with healing. All her questions were answered. She wished to proceed with surgical evaluation and treatment for fixation of her proximal humerus. She will also undergo hospitalist admission. JAEL MARIANO MD DR: RAUL/eliezer JOB#: [id number] / [id number]
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
[2018-06-26 15:00] VITALS: BP 105/50
[2018-06-26] MEDS ORDERED: BISACODYL 10 MG SUPP.RECT. PR PRN (16:00)
--- NOTE | 2018-06-26 16:55 | SNU/HH DC ---
DISCHARGE ORDERS DISCHARGE INFORMATION: DISCHARGE DATE: June 26, 2018 FINAL DIAGNOSIS Problems Medical Problems: (1) Closed left humeral fracture Status: Acute CONDITION ON DISCHARGE: Stable CODE STATUS: Code Status: Full POST DISCHARGE ORDERS: DIET AFTER DISCHARGE: Cardiac FOLLOW-UP: PHYSICIAN FOLLOW-UP: Dr Chavira within one month. Follow up with Dr Hopkins as advised. TREATMENT/EQUIPMENT ORDERS: Physical Therapy For: Evalulation/Treatment Occupational Therapy For: Evaluation/Treatment DISCHARGE MEDICATIONS: Home Meds Active Scripts Escitalopram Oxalate (ESCITALOPRAM OXALATE) 10 Mg Tablet, 1 TAB PO DAILY for mood, #30 TAB 3 Refills Prov:MARTELL CHAVIRA MD 06/26/18 Mupirocin (MUPIROCIN OINTMENT) 22 Gm Oint...g., 1 MATIAS TP TID for WOUND CARE for 7 Days, #1 TUBE 0 Refills Prov:IRMA BLANCO APRN 05/07/18 Reported Medications Oxycodone Hcl (OXYCODONE HCL IMMED.RELEASE) 15 Mg Tablet, 1 TAB PO TID PRN for PAIN, #90 TAB 01/23/16 Alprazolam (XANAX) 1 Mg Tablet, 1 TAB PO BID PRN for ANXIETY, #60 TAB 01/23/16 Losartan Potassium (LOSARTAN POTASSIUM) 50 Mg Tablet, 50 MG PO DAILY, TAB 01/23/16 Discontinued Scripts Silver Sulfadiazine (SILVADENE) 20 Gm Cream..g., 1 MATIAS TP BID, #50 GM Prov:TENISHA GONZALES RESOURCE CONSERVATIONIST 05/09/18 Diclofenac Potassium (DICLOFENAC POTASSIUM) 50 Mg Tablet, 1 TAB PO BID, #60 TAB 1 Refill Prov:TENISHA GONZALES APRN 05/09/18 Hydrocodone Bit/Acetaminophen (HYDROCODONE-APAP 5-325 ) 1 Tab Tablet, 1 TAB PO PRN Q6HRS PRN for PAIN for 3 Days, #12 TAB 0 Refills Prov:IRMA BLANCO APRN 05/07/18 Hydrocodone/Apap 5-325 (NORCO 5-325 TABLET) 1 Each Tablet, 1 TAB PO PRN Q6HRS PRN for PAIN, #6 TAB Prov:TISHA BUITRAGO MD 01/25/16 Ricarda MOORE MD June 26, 2018 16:55
[2018-06-26] MEDS ORDERED: HYDR-3135 PO (16:56)
--- NOTE | 2018-06-26 19:46 | NUR ---
Pt was discharged to home with home health at 1915 today in stable condition with all personal belongings after reviewing all personal information including education, medications, follow up and at home care. Astrid COBURN to contact pt in the morning, pt is aware, paper prescription from Dr. Hopkins for [place] 10/325 PO given to pt, copy is in chart, pt was escorted via WC and driven home by her daughter.
== END 2018-06-26 19:15 | disposition home health service (06) | DRG 494 ==
LOC: ER 13:22 → 4 NORTH 14:53
PROVIDERS: ADMIT Family Medicine; ATTEND Family Medicine
PROC: 0PSG04Z Reposition Left Humeral Shaft with Internal Fixation Device, Open Approach (ICD-10-PCS; principal; 2018-06-25 16:30)
DX: S42.292A Other displaced fracture of upper end of left humerus, initial encounter for closed fracture (principal); I10 Essential (primary) hypertension; E78.00 Pure hypercholesterolemia, unspecified; F32.9 Major depressive disorder, single episode, unspecified; F41.9 Anxiety disorder, unspecified; M54.5 Low back pain; G89.29 Other chronic pain; Z96.653 Presence of artificial knee joint, bilateral; W01.0XXA Fall on same level from slipping, tripping and stumbling without subsequent striking against object, initial encounter; Y93.89 Activity, other specified; Y92.098 Other place in other non-institutional residence as the place of occurrence of the external cause; Y99.8 Other external cause status; Z87.891 Personal history of nicotine dependence; Z88.0 Allergy status to penicillin; Z88.2 Allergy status to sulfonamides; Z88.8 Allergy status to other drugs, medicaments and biological substances
CPT/HCPCS: 36415; 73030; 76000; 80053; 85025; 85610; 96374; A7015; C1713; J1100; J1885; J2001; J2250; J2270; J2405; J2704; J2710; J3010; J3490; J7030; J7120; 97116; 97530; 97535; 99285-25

== ENCOUNTER 2018-09-15 06:03 | Day surgery (SDC) | payer MEDICARE, MEDICAID ==
[~2018-09-15] VITALS: Ht 160 cm; Wt 85.7 kg
[~2018-09-15 06:03] MED LIST changes: +BUPIVACAINE-EPI 0.25%-1:200000 MPF 30 ML VIAL. ONE; +ESCITALOPRAM OX10 MG PO; +GABA300C18 PO; +HYDR-3135 PO; +NAPR-683 PO; +TIZA4TAB2 PO
[2018-09-15] MEDS ORDERED: IV RINGERS,LACTATED 1000ML 1,000 ML IV SCH ×2 (07:00→09:31)
[2018-09-15] MEDS ORDERED: ONDANSETRON PF 4 MG/2 ML VIAL. ONE (07:08)
[2018-09-15] MEDS ORDERED: fentaNYL PF VIAL 100 MCG/2 ML VIAL ONE ×2 (07:08→08:26)
[2018-09-15] MEDS ORDERED: MIDAZOLAM HCL/PF 2 MG/2 ML VIAL. ONE (07:08)
[2018-09-15] MEDS ORDERED: LIDOCAINE 2% PF 5 ML VIAL. ONE (07:08)
[2018-09-15] MEDS ORDERED: PROPOFOL 20 ML IV ONE (07:08)
[2018-09-15] MEDS ORDERED: DEXAMETHASONE SOD PHOS 4 MG/ML VIAL ONE (07:08)
[2018-09-15] MEDS ORDERED: KETAMINE HCL IN NACL, ISO-OSM 50 MG/5 ML SYRINGE ONE (08:09)
[2018-09-15] MEDS ORDERED: SEVOFLURANE 61 TO 120 MINUTES. IH ONE (08:31)
[2018-09-15] MEDS: HYDROmorphone 2 MG/ML VIAL IV PRN ×4 (09:40→10:46)
[2018-09-15] MEDS ORDERED: MORPHINE SULFATE 2 MG/ML VIAL. IV PRN (09:45)
[2018-09-15] MEDS ORDERED: fentaNYL PF VIAL 100 MCG/2 ML VIAL IV PRN ×2 (09:45)
[2018-09-15] MEDS ORDERED: PROCHLORPERAZINE 10 MG/2 ML VIAL. IV PRN (09:45)
[2018-09-15] MEDS ORDERED: OXYC15TA PO (10:15)
--- NOTE | 2018-09-15 10:23 | DISCH ---
DISCHARGE INSTRUCTIONS Condition on Discharge Condition on Discharge: Stable Activity After Discharge Activity Instructions for Disc: Activity as tolerated Bathing Instructions: Shower-keep dressing dry Diet after Discharge Diet after Discharge: Regular Wound Incision Care Wound/Incision Care: Ice to area for comfort, Change dressing (remove dressing in 2 days may then shower) Contacting the after DC Call your doctor for: Concerns you may have Follow-Up Follow up with: Kellie 10 days JAEL MARIANO MD Sep 15, 2018 10:23
[2018-09-15] MEDS ORDERED: oxyCODONE IR 5 MG TABLET PO ONE (10:30)
[2018-09-15] MEDS ORDERED: GABA300C18 PO (10:34)
[2018-09-15 10:45] VITALS: BP 141/88
--- NOTE | 2018-09-15 11:37 | PDOC4 ---
Operative Note Operative Note Date of surgery: 09/15/2018 Preoperative diagnosis: Partial collapse left proximal humerus fracture with resulting prominent screw hardware Postoperative diagnosis: Same with 2 screws showing prominence and an additional one screw questionable for up chondral penetration Operative procedure: Removal of deep screws �3 and replacement with shorter fixation on all 3 screws proximal humeral plate Surgeon: Kellie Anesthesia: Gen. Estimated blood loss: 50 mL Complications: None Operative indications: Sylvia is a 58-year-old female that previously underwent proximal humerus fracture fixation and initially had some collapse of the fracture resulting in prominence of at least 2 screws and she appeared to go on to heal or at least obtain stability of the fracture but continued to have pain and limitations in her range of motion. I went over with her that since the fracture appeared to have stabilized but she still is symptomatic and there appears to be a probability of penetration of the articular surface with 2 of the visualized screws based on x-ray views I had talked to her about removal or revision of the screw hardware. We also talked about retaining the remaining plate and screw fixation because healing occurs relatively slowly over time I don't think there is any need to take the rest of the hardware out for other reasons and the support would be desirable. All her questions were answered she is aware of the possibility of continued pain nonhealing infection nerve or blood vessel damage medical or other anesthetic complications among others and she wishes to proceed with surgical evaluation and treatment. Operative text: Patient was identified procedure verified patient placed in the supine position on the operating table. After adequate amounts of general anesthesia were administered she was placed in the beachchair position all bony prominences were well-padded and the left shoulder was prepped and draped in standard sterile fashion. After timeout was performed patient procedure identified and verified the left shoulder was examined under anesthesia and found to have mild restriction in terminal elevation and external rotation no crepitus or gross instability noted. A lateral deltoid splitting incision was made over the palpable area of the plate and the offending screws were identified under fluoroscopic guidance. A total of 3 were removed as to clearly appeared to have some subchondral penetration the third was questionable but due to her history of previous partial collapse of the fracture I elected to remove it and exchange for shorter locking screws in all holes to continue to offer support to the healing proximal humerus. There was no evidence of any instability despite screw removal and fluoroscopic examination. Thorough irrigation carried out normal saline solution bleeding points controlled by electrocautery subcutaneous closure with buried Vicryl suture skin closure with subcuticular Monocryl Steri-Strips and Mastisol were applied as were sterile dressings she was placed in the sling returned recovery room in stable condition having tolerated the procedure well JAEL MARIANO MD Sep 15, 2018 11:37
== END 2018-09-15 11:13 | disposition home or self-care (01) ==
LOC: SURG 06:03
PROVIDERS: ATTEND Orthopaedic Surgery
DX: T84.84XA Pain due to internal orthopedic prosthetic devices, implants and grafts, initial encounter (principal); Y83.8 Other surgical procedures as the cause of abnormal reaction of the patient, or of later complication, without mention of misadventure at the time of the procedure; Y92.89 Other specified places as the place of occurrence of the external cause; D64.9 Anemia, unspecified; F32.9 Major depressive disorder, single episode, unspecified; F41.9 Anxiety disorder, unspecified; I10 Essential (primary) hypertension; Z96.653 Presence of artificial knee joint, bilateral; Z87.891 Personal history of nicotine dependence; Z88.1 Allergy status to other antibiotic agents; Z88.0 Allergy status to penicillin; Z88.8 Allergy status to other drugs, medicaments and biological substances; Z98.890 Other specified postprocedural states
CPT/HCPCS: 20680; 24999; 76000; A7015; C1713; J0780; J1100; J1170; J2001; J2250; J2405; J2704; J3010; J3490

== ENCOUNTER 2019-03-04 13:08 | Emergency (ER) | payer MEDICARE, MEDICAID ==
[~2019-03-04] VITALS: Ht 165.1 cm; Wt 85.7 kg
[~2019-03-04 13:08] MED LIST changes: -BUPIVACAINE-EPI 0.25%-1:200000 MPF 30 ML VIAL. ONE; -CLINDAMYCIN 900MG PREMIX 50 ML IV PRN
[2019-03-04 13:25] VITALS: BP 175/91
[2019-03-04] MEDS ORDERED: ORPHENADRINE CITRATE 60 MG/2 ML VIAL. IM ONE (13:45)
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
--- NOTE | 2019-03-04 14:35 | RAD ---
CT HEAD AND CERVICAL SPINE WO Date: 03/04/2019 2:08 PM Clinical Indication: Comparison: None. Technique: 5 mm axial tomographic images were obtained of the head without contrast. These were viewed on brain and bone windows. Noncontrast CT of the cervical spine was performed. Sagittal and coronal reformats were performed and evaluated. One or more of the following dose reduction techniques were utilized: Automated exposure control (AEC), Adjustment of mA and/or kV according to patient size, Use of iterative reconstruction technique such as ASiR, CT scan done according to ALARA and image gently/image wisely HEAD FINDINGS: Mild generalized cerebral and cerebellar volume loss. Mild nonspecific periventricular hypoattenuation, most commonly seen with chronic small vessel ischemic disease. No intra- or extra-axial mass or fluid collection. No acute hemorrhage. The ventricles are normal in size, shape, and morphology. The phillips-white matter junction is normal. The basilar cisterns are patent. The visualized paranasal sinuses are normal. The visualized portions of the orbits and globes are normal. The mastoid air cells are clear. No aggressive osseous lesion or fracture. CERVICAL SPINE FINDINGS: Postsurgical changes of ACDF at C5-C7. Straightening of the normal cervical lordosis. Trace anterolisthesis at C3-4. No acute fracture. No aggressive lytic or blastic osseous lesions. Mild to moderate multilevel degenerative disc space height loss. Multilevel mild spinal canal stenosis secondary to disc protrusions and marginal osteophytes. Multilevel mild and moderate neuroforaminal narrowing secondary to uncovertebral arthrosis. Multilevel moderate to severe facet arthrosis. Left thyroid nodule better evaluated on prior thyroid ultrasound 11/07/2015. No cervical lymphadenopathy. Bilateral carotid atherosclerosis. The visualized aerodigestive tract is normal. The visualized portions of the lungs are clear. IMPRESSION: 1. No acute intracranial process. 2. No acute cervical spine fracture. Electronically signed by: Mukund Niño MD (03/04/2019 2:32 PM) [facility]
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
[2019-03-04] MEDS ORDERED: ORPH100T PO (15:44)
[2019-03-04] MEDS ORDERED: oxyCODONE/APAP 5/325 1 TAB TABLET PO ONE (15:45)
[2019-03-04] MEDS ORDERED: POTASSIUM CHLORIDE 20 MEQ TABLET.ER. PO ONE (16:00)
[2019-03-04] MEDS ORDERED: ORPHENADRINE CITRATE 60 MG/2 ML VIAL. IV ONE (16:00)
== END 2019-03-04 15:45 | disposition home or self-care (01) ==
LOC: ER 13:08
DX: M25.511 Pain in right shoulder (principal); M25.512 Pain in left shoulder; M25.551 Pain in right hip; M25.552 Pain in left hip; G89.11 Acute pain due to trauma; R07.89 Other chest pain; R51 Headache; G89.29 Other chronic pain; M51.37 Other intervertebral disc degeneration, lumbosacral region; M19.011 Primary osteoarthritis, right shoulder; I10 Essential (primary) hypertension; E78.00 Pure hypercholesterolemia, unspecified; Z98.890 Other specified postprocedural states; Z88.0 Allergy status to penicillin; Z88.2 Allergy status to sulfonamides; Z88.5 Allergy status to narcotic agent; Y08.89XA Assault by other specified means, initial encounter; Y93.89 Activity, other specified; Y92.89 Other specified places as the place of occurrence of the external cause; Y99.8 Other external cause status
CPT/HCPCS: 70450; 71046; 72125; 73030; 73521; 96372; 99284; J2360

== ENCOUNTER 2020-08-27 19:19 | Emergency (ER) | payer MEDICARE, MEDICAID ==
[~2020-08-27] VITALS: Ht 157.5 cm; Wt 80.0 kg
[~2020-08-27 19:19] MED LIST changes: +ORPH100T PO; -OXYC15TA PO; +OXYC15TA3 PO
[2020-08-27 20:41] LABS: BASO % 0 % (0-3); EOS # 0.6 x10^3/uL (0.0-0.7); EOS % 8 % (0-3); HEMATOCRIT 35.8 % (36.0-47.0); HEMOGLOBIN 11.8 g/dL (12.0-15.5); LYMPH # 2.8 x10^3/uL (1.0-4.8); LYMPH % 37 % (24-48); MEAN CORPUSCULAR HEMOGLOBIN 29 pg (25-35); MEAN CORPUSCULAR HGB CONC 33 g/dL (31-37); MEAN CORPUSCULAR VOLUME 88 fL (79-100); MONO # 0.6 x10^3/uL (0.0-1.1); MONO % 8 % (0-9); NEUT # 3.5 x10^3/uL (1.8-7.7); NEUT % 47 % (31-73); PLATELET COUNT 399 x10^3/uL (140-400); RED BLOOD COUNT 4.09 x10^6/uL (3.50-5.40); RED CELL DISTRIBUTION WIDTH 14.7 % (11.5-14.5); WHITE BLOOD COUNT 7.5 x10^3/uL (4.0-11.0)
[2020-08-27 20:50] LABS: CALCIUM 8.4 mg/dL (8.5-10.1); CREATININE 0.9 mg/dL (0.6-1.0); GFR 63.2; POTASSIUM 4.1 mmol/L (3.5-5.1)
[2020-08-27 20:56] LABS: ALBUMIN 3.5 g/dL (3.4-5.0); TOTAL BILIRUBIN 0.3 mg/dL (0.2-1.0); TOTAL PROTEIN 7.1 g/dL (6.4-8.2)
[2020-08-27 21:38] VITALS: BP 155/90
--- NOTE | 2020-08-27 23:44 | ED.ADGEN ---
Past Medical History Additional Past Medical Histor: CHRONIC PAIN Past Surgical History: Knee Replacement Additional Past Surgical Histo: RIGHT AND LEFT KNEE Smoking Status: Current Every Day Smoker Alcohol Use: Occasionally General Adult EDM: Chief Complaint: ALTERED MENTAL STATUS HPI: HPI: Patient is a 60 year old [f__sex] who presents with [] Review of Systems: Review of Systems: Constitutional: Denies fever or chills. [] Eyes: Denies change in visual acuity. [] HENT: Denies nasal congestion or sore throat. [] Respiratory: Denies cough or shortness of breath. [] Cardiovascular: Denies chest pain or edema. [] GI: Denies abdominal pain, nausea, vomiting, bloody stools or diarrhea. [] : Denies dysuria. [] Musculoskeletal: Denies back pain or joint pain. [] Integument: Denies rash. [] Neurologic: Denies headache, focal weakness or sensory changes. [] Endocrine: Denies polyuria or polydipsia. [] Lymphatic: Denies swollen glands. [] Psychiatric: Denies depression or anxiety. [] Allergies: Allergies: Allergies Coded Allergies Type Severity Reaction Last Updated Verified Penicillins Allergy Unknown 08/27/20 Yes Sulfa (Sulfonamide Antibiotics) Allergy Unknown 08/27/20 Yes sulfur Allergy Unknown 08/27/20 Yes Physical Exam: PE: Constitutional: Well developed, well nourished, no acute distress, non-toxic appearance. [] HENT: Normocephalic, atraumatic, bilateral external ears normal, oropharynx moist, no oral exudates, nose normal. [] Eyes: PERRLA, EOMI, conjunctiva normal, no discharge. [] Neck: Normal range of motion, no tenderness, supple, no stridor. [] Cardiovascular:Heart rate regular rhythm, no murmur [] Lungs & Thorax: Bilateral breath sounds clear to auscultation [] Abdomen: Bowel sounds normal, soft, no tenderness, no masses, no pulsatile masses. [] Skin: Warm, dry, no erythema, no rash. [] Back: No tenderness, no CVA tenderness. [] Extremities: No tenderness, no cyanosis, no clubbing, ROM intact, no edema. [] Neurologic: Alert and oriented X 3, normal motor function, normal sensory functi on, no focal deficits noted. [] Psychologic: Affect normal, judgement normal, mood normal. [] Current Patient Data: Labs: Laboratory Tests Test 08/27/20 20:35 White Blood Count 7.5 x10^3/uL (4.0-11.0) Red Blood Count 4.09 x10^6/uL (3.50-5.40) Hemoglobin 11.8 g/dL (12.0-15.5) L Hematocrit 35.8 % (36.0-47.0) L Mean Corpuscular Volume 88 fL (79-100) Mean Corpuscular Hemoglobin 29 pg (25-35) Mean Corpuscular Hemoglobin Concent 33 g/dL (31-37) Red Cell Distribution Width 14.7 % (11.5-14.5) H Platelet Count 399 x10^3/uL (140-400) Neutrophils (%) (Auto) 47 % (31-73) Lymphocytes (%) (Auto) 37 % (24-48) Monocytes (%) (Auto) 8 % (0-9) Eosinophils (%) (Auto) 8 % (0-3) H Basophils (%) (Auto) 0 % (0-3) Neutrophils # (Auto) 3.5 x10^3/uL (1.8-7.7) Lymphocytes # (Auto) 2.8 x10^3/uL (1.0-4.8) Monocytes # (Auto) 0.6 x10^3/uL (0.0-1.1) Eosinophils # (Auto) 0.6 x10^3/uL (0.0-0.7) Basophils # (Auto) 0.0 x10^3/uL (0.0-0.2) Sodium Level 145 mmol/L (136-145) Potassium Level 4.1 mmol/L (3.5-5.1) Chloride Level 111 mmol/L (98-107) H Carbon Dioxide Level 26 mmol/L (21-32) Anion Gap 8 (6-14) Blood Urea Nitrogen 12 mg/dL (7-20) Creatinine 0.9 mg/dL (0.6-1.0) Estimated GFR (Cockcroft-Gault) 63.2 BUN/Creatinine Ratio 13 (6-20) Glucose Level 98 mg/dL (70-99) Calcium Level 8.4 mg/dL (8.5-10.1) L Total Bilirubin 0.3 mg/dL (0.2-1.0) Aspartate Amino Transferase (AST) 14 U/L (15-37) L Alanine Aminotransferase (ALT) 15 U/L (14-59) Alkaline Phosphatase 107 U/L (46-116) Total Protein 7.1 g/dL (6.4-8.2) Albumin 3.5 g/dL (3.4-5.0) Albumin/Globulin Ratio 1.0 (1.0-1.7) Ethyl Alcohol Level 37 mg/dL (0-10) H Laboratory Tests 08/27/20 20:35 Laboratory Tests 08/27/20 20:35 Vital Signs: Vital Signs Date Time Temp Pulse Resp B/P (MAP) Pulse Ox O2 Delivery O2 Flow Rate FiO2 08/27/20 21:38 78 16 155/90 (111) 98 Room Air 08/27/20 19:25 98.7 98.7 EKG: EKG: [] Heart Score: Risk Factors: Risk Factors: DM, Current or recent (<one month) smoker, HTN, HLP, family history of CAD, obesity. Risk Scores: Score 0 - 3: 2.5% MACE over next 6 weeks - Discharge Home Score 4 - 6: 20.3% MACE over next 6 weeks - Admit for Clinical Observation Score 7 - 10: 72.7% MACE over next 6 weeks - Early Invasive Strategies Radiology/Procedures: Radiology/Procedures: [] Course & Med Decision Making: Course & Med Decision Making Pertinent Labs and Imaging studies reviewed. (See chart for details) [] Dragon Disclaimer: Dragon Disclaimer: This electronic medical record was generated, in whole or in part, using a voice recognition dictation system. Departure Departure Impression: Primary Impression: Opiate overdose Disposition: HOME / SELF CARE / HOMELESS Condition: STABLE Referrals: MARTELL PIERRE MD (PCP) Patient Instructions: Opiate Dependence TOMAS FARRELL MD Aug 27, 2020 23:44
== END 2020-08-28 00:10 | disposition home or self-care (01) ==
LOC: MERGE 19:19 → EDBD 19:19 → ER 19:19
DX: T40.601A Poisoning by unspecified narcotics, accidental (unintentional), initial encounter (principal); R41.82 Altered mental status, unspecified; G89.29 Other chronic pain; F17.200 Nicotine dependence, unspecified, uncomplicated; Z88.0 Allergy status to penicillin; Z88.2 Allergy status to sulfonamides; Y92.89 Other specified places as the place of occurrence of the external cause
CPT/HCPCS: 36415; 80053; 85025; 99283; G0480